=== PATIENT | female | born 1985 | race Two or more races ===

== ENCOUNTER → 2016-12-18 | Outpatient (CLI) | payer BC ==
--- NOTE | 2016-12-18 14:09 | US ---
EXAMINATION TYPE: US OB <= 14 wk fetus DATE OF EXAM: 12/18/2016 1:48 PM COMPARISON: NONE CLINICAL HISTORY: O46.91 Bleeding. EXAM PERFORMED: Transabdominal (TA) EXAM MEASUREMENTS: GESTATIONAL AGE / DATING Physician Established: (13 weeks/0 days) EDC: 06/25/17 Dates by LMP: unknown Dates by First Scan: no prior Dates by Current Scan for: (13 weeks/4 days) EDC: 06/21/17 MATERNAL ANATOMY Uterus: 13.2 x 7.4 x 10.6cm Right Ovary: 2.7 x 1.4 x 1.8cm Left Ovary: 3.3 x 2.7 x 1.5cm Post CDS / Adnexa: wnl Presence of free fluid: no Presence of corpus luteal cyst: yes, left ovary = 1.5 x 1.3 x 1.7cm Presence of subchorionic bleed: no GESTATION / SURVEY CRL: 7.3cm (13 weeks/4 days) Yolk Sac (normal less than 6mm): not seen Heart Rate: 155 bpm Rhythm: Normal IUP: Viable IUP Nuchal Translucency 10-14wks (normal less than 3mm): 0.2cm Date of LMP: unknown Beta HcG (if available): unavailable TECHNOLOGIST IMPRESSION: Single viable IUP 13wks/4days with JOSE of 06/21/17. Corpus luteum left ovar y IMPRESSION: Single intrauterine gestation estimated at 13 weeks 4 days gestation. Cardiac activity measures 155 b pm.
== END | disposition home or self-care (01) ==
LOC: RADUSWWP 13:25
PROVIDERS: ATTEND Obstetrics & Gynecology
DX: O46.91 Antepartum hemorrhage, unspecified, first trimester (principal); Z3A.13 13 weeks gestation of pregnancy
CPT/HCPCS: 76801; 76813

== ENCOUNTER 2017-06-27 | Outpatient (CLI) | payer BC ==
--- NOTE | 2017-09-03 09:36 | P.MSEPDOC ---
Presenting Problems - Arrival Data Date of Arrival on Unit: 05/31/17 Time of Arrival on Unit: 17:08 Mode of Transport: Ambulatory - Complaint OB-Reason for Admission/Chief Complaint: Possible Onset of Labor Comment: contractions since 429 this morning Medical History - Information : 4 Para: 3 Term: 3 : 0 Abortions: Spontaneous or Elective: 0 Number of Living Children: 3 - Gestational Age Gestational Age by JOSE (wks/days): 45 Weeks and 0 Days Review of Systems - Review of Systems Constitutional: No problems Breast: No problems ENT: No problems Cardiovascular: No problems Respiratory: No problems Gastrointestinal: No problems Genitourinary: No problems Musculoskeletal: No problems Neurological: No problems Skin: No problems Vital Signs - Temperature Temperature: 98.2 F Temperature Source: Oral - Pulse Right Brachial Pulse Rate: 93 Pulse Assessment Method: Automatic Cuff - Respirations Respiratory Rate: 16 Oxygen Delivery Method: Room Air - Blood Pressure Right Arm Blood Pressure: 147/91 Blood Pressure Mean: 109 Blood Pressure Source: Automatic Cuff Medical Screen Scoring (Pre) - Cervical Exam Dilation: 1-3 cm = 1 Membranes: Intact - Uterine Contractions Frequency: > 5 minutes apart = 1 Duration: N/A Intensity: N/A - Maternal Vital Signs Maternal Temperature: N/A Maternal Blood Pressure: N/A Maternal Respirations: N/A - Maternal Trauma Maternal Trauma: N/A - Assessment Baseline FHR: 135 Heart Rate - NICHD Category: Category I (Normal) = 0 NST: Reactive Position: N/A Station: N/A - Total Score Total Score (Pre): 2 - Level of Risk Level of Risk: Low (0-5) Physician Notification (Pre) - Physician Notified Physician Notified Date: 06/27/17 Physician Notified Time: 19:26 Physician/Practitioner Notifed:: kamille Spoke With: kamille New Order Received: Yes - Notification Comment Comment: pt may return in AM for induction of labour Disposition - Disposition OB Disposition: Discharge to home Discharge Date: 06/27/17 Discharge Time: 19:35 I agree with the RN Medical Screening Exam: No Physician's MSE Comment: gestational age 40 2/7 wks Risk & Benefit of care provided described in d/c instruction: Yes Diagnosis: FALSE LABOR AT OR AFTER 37 COMPLETED WEEKS OF GESTATION
== END 2017-06-27 19:35 | disposition home or self-care (01) ==
CPT/HCPCS: 59025; 99213

== ENCOUNTER 2017-06-28 06:02 | Inpatient (IN) | payer BC ==
[2017-06-28] MEDS ORDERED: CARBOPROST TROMETHAMINE 250 MCG/ML 1 ML AMP IM PRN (06:22)
[2017-06-28] MEDS ORDERED: LIDOCAINE 1% (PF) 10 MG/ML (30 ML SDV) SQ PRN (06:22)
[2017-06-28] MEDS ORDERED: OXYTOCIN 10 UNIT/ML 1 ML VIAL IM PRN (06:22)
[2017-06-28] MEDS ORDERED: METHYLERGONOVINE 0.2 MG/ML 1 ML AMP IM PRN (06:22)
[2017-06-28] MEDS ORDERED: TERBUTALINE 1 MG/ML VIAL SQ PRN (06:22)
[2017-06-28] MEDS ORDERED: OXYTOCIN 20 UNITS/1000 ML NS 1,000 ML IV SCH (06:30)
[2017-06-28 06:34] LABS: Basophils % (A) 0 %; CH 33.3; CHCM 35.4; Eosinophils # (A) 0.2 k/uL (0-0.7); Eosinophils % (A) 2 %; HCT 38.7 % (34.0-46.0); HDW 2.68; HGB 13.8 gm/dL (11.4-16.0); Luc # (Auto) 0.18; Luc % (Auto) 2; Lymphocytes # (A) 2.6 k/uL (1.0-4.8); Lymphocytes % (A) 28 %; MCH 33.8 pg (25.0-35.0); MCHC 35.7 g/dL (31.0-37.0); MCV 94.6 fL (80.0-100.0); Monocytes # (A) 0.4 k/uL (0-1.0); Monocytes % (A) 5 %; Neutrophils # (A) 5.9 k/uL (1.3-7.7); Neutrophils % (A) 64 %; RDW 13.5 % (11.5-15.5); WBC 9.3 k/uL (3.8-10.6); WBC (Perox) 9.31
[2017-06-28] MEDS: LACTATED RINGERS 1,000 ML IV SCH ×2 (06:35→09:06)
[2017-06-28 06:59] VITALS: BMI 33.9
--- NOTE | 2017-06-28 07:29 | P.HPOB ---
History of Present Illness H&P Date: 06/28/17 Chief Complaint: Here for induction of labor, postdates This is a 31-year-old white female 6 para 3023 EDC 06/25/2017 at 40-3/7 weeks' gestation. Patient presents with contractions intermittently over the past 48 hours, she denies fluid leakage or vaginal bleeding. Fetus is been active throughout the . Past surgical history significant for laparoscopic ovarian cystectomy and EGD. Current medications vitamins daily. ALLERGIES codeine to which reports a rash and anxiety, and latex examination glove to which reports a rash and hives. Past medical history is significant for irritable bowel syndrome and history of migraine headaches. Family history significant for asthma, cleft palate, type 2 diabetes, heart disease, hypertension, Bacon's syndrome, ulcerative colitis, and the p.m. rolled on syndrome. Social history patient is , she is a nonsmoker, she denies alcohol or drug use with the . history blood type is A-, RhoGAM given at 28 weeks. One-hour Glucola 114, Pap smear gonorrhea and chlamydia cultures all negative, hepatitis B surface antigen and HIV testing negative, rubella status immune. Group B strep cultures negative. On exam this is a pleasant white female who is 5 foot 5 inches, 204 pounds, blood pressure 132/75 on admission. Vital signs are stable and she is afebrile. The general physical exam is within normal limits. Cervix is 4 cm dilated, posterior, 50-60% effaced, -2 station, vertex presentation, soft. Artificial amniorrhexis reveals clear fluid, abundant volume. heart rate is in the 140s with frequent accelerations, consistent with reactive NST. Uterine contractions are occurring mildly and spontaneously every 4-5 minutes apart. Impression: 40-3/7 weeks intrauterine , here for induction of labor for post prolonged latent phase and favorable multiparous cervix. Plan: Close maternal and surveillance. Oxytocin per hospital protocol. Anticipate normal spontaneous vaginal delivery. Review of Systems Negative except as in HPI Constitutional: Reports as per HPI Past Medical History Past Medical History: No Reported History Additional Past Medical History / Comment(s): I Green headaches, irritable bowel syndrome. History of Any Multi-Drug Resistant Organisms: None Reported Additional Past Surgical History / Comment(s): Had an ovarian cyst removed at age 17 Past Anesthesia/Blood Transfusion Reactions: No Reported Reaction Past Psychological History: No Psychological Hx Reported Smoking Status: Never smoker Past Alcohol Use History: None Reported Past Drug Use History: None Reported - Past Family History Father Family Medical History: AFIB Medications and Allergies Home Medications Medication Instructions Recorded Confirmed Type Acetaminophen Tab [Tylenol Tab] 325 mg PO Q4H PRN 06/28/17 06/28/17 History Pnv,Calcium 72/Iron/Folic Acid 1 tab PO DAILY 06/28/17 06/28/17 History [ Plus Tablet] Allergies Allergy/AdvReac Type Severity Reaction Status Date / Time latex Allergy Rash/Hives Verified 06/28/17 06:18 Exam - Vital Signs Vital signs: Vital Signs Temp Pulse Resp BP 06/28/17 06:42 97.2 F L 96 16 130/75 Intake and Output 06/27/17 06/28/17 06/28/17 22:59 06:59 14:59 Other: Weight 92.533 kg See full dictation under HPI please Results Result Diagrams: 06/28/17 06:15 Assessment and Plan Plan: Close maternal and surveillance. Oxytocin per hospital protocol. Anticipate normal spontaneous vaginal delivery. Time with Patient: Less than 30
[2017-06-28] MEDS ORDERED: fentaNYL (PF) 50 MCG/ML 5 ML AMP ONE (09:11)
[2017-06-28] MEDS ORDERED: SODIUM CHLORIDE 0.9% 100 ML BAG ONE (09:11)
[2017-06-28] MEDS ORDERED: BUPIVACAINE (PF) 0.25% 30 ML VIAL ONE (09:11)
[2017-06-28] MEDS ORDERED: ACETAMINOPHEN TAB 325 MG TAB PO PRN (12:50)
[2017-06-28] MEDS ORDERED: WITCH HAZEL 1 EACH MED..PAD TOPICAL PRN (12:50)
[2017-06-28] MEDS ORDERED: diphenhydrAMINE 25 MG CAP PO PRN (12:50)
[2017-06-28] MEDS ORDERED: HYDROCORTISONE 2.5% RECTAL CREAM 30 GM TUBE RECTAL PRN (12:50)
[2017-06-28] MEDS ORDERED: SIMETHICONE 80 MG CHEWABLE PO PRN (12:50)
[2017-06-28] MEDS ORDERED: LANOLIN CREAM 5 GM TUBE TOPICAL PRN (12:50)
[2017-06-28] MEDS ORDERED: BENZOCAINE/MENTHOL SPRAY 1 GM/SPRAY AEROSOL TOPICAL PRN (12:50)
[2017-06-28] MEDS ORDERED: diphenhydrAMINE 50 MG/ML 1 ML VIAL IVP PRN ×2 (12:50)
[2017-06-28] MEDS ORDERED: diphenhydrAMINE 50 MG CAP PO PRN (12:50)
[2017-06-28] MEDS ORDERED: Acetaminophen-Codeine 300-30mg TAB PO PRN (12:50)
[2017-06-28] MEDS ORDERED: ZOLPIDEM 5 MG TAB PO PRN (12:50)
--- NOTE | 2017-06-28 12:50 | P.PROBDLV ---
Vaginal Delivery Note - . Vaginal Delivery Note: This is a 31-year-old white female 6 para 3023 EDC 06/25/2017 at 40-3/7 weeks' gestation. Patient presented for induction with prolonged latent phase labor and favorable multiparous cervix. Fetus is been active throughout the . is essentially unremarkable, rubella status immune, blood type A negative. Please see my dictated history and physical for details. Artificial amniorrhexis revealed clear fluid. Oxytocin was started and titrated per hospital protocol. Epidural was placed per her request. She progressed well through the first stage of labor and was judged to be completely dilated at 1230 hrs. The second stage of labor was started at that time. Perineal body was prepped and draped in usual sterile fashion. With excellent maternal expulsive efforts 's head was delivered occiput anterior and he restituted accordingly. The right or anterior shoulder was gently and easily delivered from underneath the pubic symphysis at which time the oropharynx, nasopharynx and external nares were all bulb suctioned on the perineal body. Patient was officially delivered of a liveborn male at 1235 hrs. Umbilical cord was doubly clamped and ligated, he was handed to waiting nurses for evaluation where scores of 9 and 9 at one and 5 minutes respectively were given. The uterus is then massaged. The placenta delivered spontaneously, it was inspected and noted to be intact with trivascular cord at 1238 hrs. Inspection now of the cervix, vagina, perineum, periurethral and perirectal areas revealed no lacerations or defects. Uterus is firm and in the midline, symmetric and 18 week size upon completion of delivery. Total estimated blood loss 300 mL's. Infant weighed 9 lbs. 10 oz. or 4380 g. They are requesting circumcision further infant son. Family is allowed to begin the bonding experience.
[2017-06-28 15:58] VITALS: RESP 16
[2017-06-28] MEDS: SENNOSIDES-DOCUSATE SODIUM 1 EACH TAB PO SCH (21:36)
[2017-06-29 02:01] VITALS: PULSE 73
[2017-06-29] MEDS: IBUPROFEN 600 MG TAB PO PRN ×2 (05:44→12:30)
--- NOTE | 2017-06-29 06:53 | P.DS ---
Providers Date of admission: 06/28/17 06:02 Expected date of discharge: 06/29/17 Attending physician: Yessi Al Primary care physician: Stated None Hospital Course: This is a 31-year-old white female 6 para 3023 EDC 06/25/2017 at 40-2/7 weeks' gestation. Patient presented for induction with favorable multiparous cervix, in latent phase labor, and at 40-3/7 weeks. is essentially unremarkable, please see my dictated history and physical for details. [place] strep cultures negative, 1 hour Glucola within normal limits, rubella status immune. Patient was admitted, artificial amniorrhexis was performed for clear fluid. Oxytocin was started and titrated per hospital protocol. Epidural was placed per her request. She went on to deliver a liveborn male infant with scores of 9 and 9 at one and 5 minutes respectively. Infant weighed 9 lbs. 10 oz. or 4380 g. Estimated blood loss recorded of 300 mL's. Perineal body clean and dry, no stitches deemed necessary. Please see my dictated delivery note for details. This morning the patient is doing well. She is voiding, ambulating and passing flatus without difficulty. Vital signs are stable and she is afebrile. Fundus is firm and in the midline, symmetric and 18 week size. Breast-feeding is going well. Lochia rubra is minimal to moderate. No large blood clots passed. Pain well tolerated. Extremities negative. Patient is being discharged home today in very good condition. She will follow- up in the office with me in 6 weeks. Her has already had a vasectomy. She is reminded to call me with any fevers shakes or chills, foul smelling or copious lochia, with the passage of large blood clots, with any pain not alleviated by Motrin products, or indeed with any concerns. Circumcision has been performed, infant will follow-up with medical device engineer as per recommendations. Patient Condition at Discharge: Good Plan - Discharge Summary New Discharge Prescriptions: No Action Acetaminophen Tab [Tylenol Tab] 325 mg PO Q4H PRN PRN Reason: Pain Pnv,Calcium 72/Iron/Folic Acid [ Plus Tablet] 1 tab PO DAILY Discharge Medication List Acetaminophen Tab [Tylenol Tab] 325 mg PO Q4H PRN 06/28/17 [History] Pnv,Calcium 72/Iron/Folic Acid [ Plus Tablet] 1 tab PO DAILY 06/28/17 [ History]
[2017-06-29 08:05] VITALS: BP 111/70; TEMP 98.2
[2017-06-29] MEDS: SENNOSIDES-DOCUSATE SODIUM 1 EACH TAB PO SCH (08:07)
== END 2017-06-29 15:15 | disposition home or self-care (01) | DRG 775 ==
LOC: 4FBP 06:02
PROVIDERS: ADMIT Obstetrics & Gynecology; ATTEND Obstetrics & Gynecology
PROC: 10E0XZZ Delivery of Products of Conception, External Approach (ICD-10-PCS; principal; 2017-06-28)
PROC: 3E033VJ Introduction of Other Hormone into Peripheral Vein, Percutaneous Approach (ICD-10-PCS; 2017-06-28)
PROC: 10907ZC Drainage of Amniotic Fluid, Therapeutic from Products of Conception, Via Natural or Artificial Opening (ICD-10-PCS; 2017-06-28)
PROC: 3E0S3NZ Introduction of Analgesics, Hypnotics, Sedatives into Epidural Space, Percutaneous Approach (ICD-10-PCS; 2017-06-28)
DX: O48.0 Post-term pregnancy (principal); O63.0 Prolonged first stage (of labor); Z3A.40 40 weeks gestation of pregnancy; Z37.0 Single live birth; Z88.5 Allergy status to narcotic agent; Z91.040 Latex allergy status; Z87.42 Personal history of other diseases of the female genital tract; Z83.3 Family history of diabetes mellitus; Z82.5 Family history of asthma and other chronic lower respiratory diseases; Z82.49 Family history of ischemic heart disease and other diseases of the circulatory system; Z82.79 Family history of other congenital malformations, deformations and chromosomal abnormalities; Z83.79 Family history of other diseases of the digestive system; Z67.11 Type A blood, Rh negative; Z86.69 Personal history of other diseases of the nervous system and sense organs; Z87.19 Personal history of other diseases of the digestive system
CPT/HCPCS: 85025; 88307